=== PATIENT | male | born 1945 | race Caucasian/White ===

== ENCOUNTER 2018-07-10 09:36 | Emergency (ER) | payer MEDICARE, OTHER ==
[~2018-07-10] VITALS: Ht 182.9 cm; Wt 99.8 kg
[~2018-07-10 09:36] MED LIST: FISH OIL 1,0001 EAC1 PO; GABAPENTIN300 MG PO; GLUCOSAMINE &1 EAC1 PO; LISINOPRIL5 MG PO; MULTIVITAMINS1 EAC7 PO; ONDANSETRON ODT8 MG PO; PRILOSEC20 MG PO; ROBINUL1 MG PO
[2018-07-10] MEDS ORDERED: COQ-1030 MG PO (10:02)
[2018-07-10] MEDS ORDERED: DIAZEPAM5 MG PO (12:58)
== END 2018-07-10 13:29 | disposition home or self-care (01) ==
LOC: ED 09:36
DX: M54.5 Low back pain (principal); I10 Essential (primary) hypertension; E78.00 Pure hypercholesterolemia, unspecified; K21.9 Gastro-esophageal reflux disease without esophagitis; Z88.0 Allergy status to penicillin; Z79.899 Other long term (current) drug therapy
CPT/HCPCS: 72100; 99283

== ENCOUNTER 2019-07-03 19:02 | Emergency (ER) | payer MEDICARE, OTHER ==
[~2019-07-03] VITALS: Ht 182.9 cm; Wt 99.8 kg
[~2019-07-03 19:02] MED LIST changes: +COQ-1030 MG PO; +DIAZEPAM5 MG PO
[2019-07-03] MEDS ORDERED: LISINOPRIL40 MG PO (19:25)
[2019-07-03] MEDS ORDERED: VIAGRA100 MG PO (19:27)
--- NOTE | 2019-07-04 22:34 | EKG ---
[facility] [address] [facility] [place] [address] Signed Normal sinus rhythm Nonspecific T wave abnormality Abnormal ECG When compared with ECG of 05-MAY-2018 14:57, premature atrial complexes are no longer present Confirmed by CB WALKER MD ([id number]) on 07/04/2019 10:34:48 PM Electronically Signed By: CB WALKER MD 07/04/19 2234 PATIENT NAME: ANDREWGORDO TUCKER Electrocardiogram DATE OF : 49 PHYSICIAN: CB WALKER MD REPORT #: [id number] REPORT IS CONFIDENTIAL AND NOT TO BE RELEASED WITHOUT AUTHORIZATION
== END 2019-07-03 20:48 | disposition home or self-care (01) ==
LOC: ED 19:02
DX: I10 Essential (primary) hypertension (principal); K21.9 Gastro-esophageal reflux disease without esophagitis; Z88.0 Allergy status to penicillin; Z79.899 Other long term (current) drug therapy
CPT/HCPCS: 80053; 85025; 93005; 93010; 99284-25

== ENCOUNTER 2019-12-28 20:50 | Observation (INO) | payer MEDICARE, OTHER ==
[~2019-12-28] VITALS: Ht 182.9 cm; Wt 104.3 kg
[~2019-12-28 20:50] MED LIST changes: +LISINOPRIL40 MG PO; +PRILOSEC OTC20 MG PO; -PRILOSEC20 MG PO; +VIAGRA100 MG PO
[2019-12-28] MEDS ORDERED: VENTOLIN HFA18 GM INH (21:15)
[2019-12-28] MEDS ORDERED: BENZONATATE100 MG PO (21:15)
[2019-12-28] MEDS ORDERED: SUDOGEST30 MG PO (21:16)
[2019-12-28] MEDS ORDERED: VIRTUSSIN AC W473 ML PO (21:16)
[2019-12-28] MEDS ORDERED: HYDROCHLOROTHIA25 MG PO (22:13)
--- NOTE | 2019-12-28 22:30 | NUR ---
PT ARRIVED TO THE FLOOR. PHONE REPORT RECIEVED FROM LISA CARDONA AT 5732. PT TRANSFERED TO BED ON HIS OWN, SBPeng. PIERO THAYER. MENG CARDONA IN ROOM TO ADMIT.
--- NOTE | 2019-12-28 23:28 | NUR ---
SCHEDULED MEDS PROVIDED. IV WNL, FLUSHED WELL. ASSESSMENT COMPLETED. LUNGS CLEAR IN UPPER LOBES AND DIMINISHED IN LOWER LOBES. SNACK PROVIDED. NO OTHER NEEDS. CALL LIGHT IN REACH.
--- NOTE | 2019-12-29 02:16 | NUR ---
PT AWAKE IN ROOM. ASSESSMENT COMPLETED. LUNGS CLEAR IN ALL LOBES, DIMINISHED IN LOWER LOBES. PT STATES HE FEELS HE MAY NEED TO HAVE A BOWEL MOVEMENT SOON HE IS HAVING ABD PAINS. BOWEL TONES ACTIVE. NO OTHER NEEDS AT THIS TIME. IV INFUSING PER ORDER. CALL LIGHT IN REACH.
--- NOTE | 2019-12-29 04:07 | NUR ---
PT CALLS TO ASK FOR SOMETHING FOR HIS CONGESTION. PT EDUCATED CONCERNING MEDICATION SCHEDULE. HOT TEA PROVIDED, ROOM TEMP TURNED DOWN. PT REQUESTS PUDDING, PROVIDED. NO OTHER NEEDS. CALL LIGHT IN REACH.
--- NOTE | 2019-12-29 04:24 | NUR ---
IV FLUID PROVIDED PER ORDER. IV WNL, CDI, FLUSHED WELL. NO OTHER NEEDS AT THIS TIME. CALL LIGHT IN REACH.
--- NOTE | 2019-12-29 05:30 | NUR ---
PT SLEPT OFF AND ON THIS SHIFT. LUNG SOUNDS CLEAR IN UPPER LOBES, DIMINISHED IN LOWER LOBES. PT STATES HE FEELS LIKE HE HAS GAS PAIN IN ABD, PT HAD 1 SMALL BM. BOWEL TONES ACTIVE, PT STATES ABD NORMAL. PT TOLERATED IV FLUIDS WELL. IV CDI. OCCASSIONAL CONGESTED COUGH.
--- NOTE | 2019-12-29 06:22 | NUR ---
PT AWAKE, SITTING ON EDGE OF BED. UP TO BR AND BACK TO BED. NO OTHER NEEDS AT THIS TIME. CALL LIGHT IN REACH.
--- NOTE | 2019-12-29 07:30 | NUR ---
Bedside report received by BRENDAN Geronimo. Orders acknowledged. Patient laying in bed, awake and alert. 3% NS infusing at 50 mls/hr. Patient reports "I didn't sleep well last night, my nose is so stuffed up it's hard to breathe." Denies needs at this time, call light within reach.
--- NOTE | 2019-12-29 07:55 | NUR ---
PT REQUESTED SOMETHING FOR NAUSEA, ZOFRAN 4MG IV GIVEN, PT SITTING UP ON SIDE OF BED.
--- NOTE | 2019-12-29 10:32 | NUR ---
PT ALERT, ORIENTED AND RESTING IN BED WITH TV ON. PT IS FEELING BETTER, WAITING FOR RECENT LAB RESULTS. PT IS VERY PLEASED WITH HIS CARE, AND SEEMS TO BE COPING WELL ALL THINGS CONSIDERED. LEFT A G.POST, PT REQUESTED PRAYER
--- NOTE | 2019-12-29 11:00 | NUR ---
Patient states "I feel achy and flushed." Patient coughing up green/brown sputum, face is flushed, and has a temp of 99.2. Dr. Ceballos notified. Orders acknowledged for nasal swab and sputum culture to be sent to lab. Specimens collected and sent off. Patient denies further needs at this time, call light within reach.
--- NOTE | 2019-12-29 12:08 | NUR ---
Patient up to toilet, voiding QS. 3% NS infusing at 60 mls/hr. Returns to bed, lunch delivered. Denies needs at this time, call light within reach.
--- NOTE | 2019-12-29 14:31 | NUR ---
PATIENT WAS ADMITTED AT HIGH RISK FOR MALNUTRITION DUE TO DECREASED APPETITE AND RECENT WEIGHT LOSS. 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 HIS BMI IS 31.2. CURRENTLY IN ROOM LYING IN BED WATCHING TV, BUT WAS MOVING AROUND INDEPENDENTLY A FEW MINUTES AGO LOOKING OUT THE WINDOW. CURRENT DIET IS REGULAR. HE HAD HYPONATREMIA WHEN HE CAME IN. ANTICIPATE NUTRITON NEEDS TO BE MET BY ORAL DIET PATIENT FEELS BETTER. NO INTERVENTION NEEDED AT THIS TIME. WILL REMAIN AVAILABLE IF NEEDED.
--- NOTE | 2019-12-29 14:54 | NUR ---
Dr. Ceballos in room to discuss POC with patient. 3% NS infusing at 60 mls/hr. All patient questions and concerns answered. Pharmacy in room to reconcile medications.
[2019-12-29] MEDS ORDERED: CHLORTHALIDONE25 MG PO (16:26)
[2019-12-29] MEDS ORDERED: DICLOFENAC SOD100 GM TOP (16:30)
[2019-12-29] MEDS ORDERED: ROPINIROLE HCL1 MG PO (16:33)
--- NOTE | 2019-12-29 16:35 | NUR ---
MED REC COMPLETED USING [facility] FILL INFORMATION, [facility] MEDICATION LIST AND PATIENT INTERVIEW.
--- NOTE | 2019-12-29 18:10 | NUR ---
Patient sleeping in bed on right side, respirations even and unlabored. Call light within reach.
--- NOTE | 2019-12-29 19:28 | NUR ---
SHIFT REPORT RECIEVED FROM NBA CARDONA. PT RESTING IN BED. NO NEEDS AT THIS TIME. CALL LIGHT IN REACH.
--- NOTE | 2019-12-29 20:16 | NUR ---
PT CALLED REQUESTING A SODA, HE DENIES FURTHER NEEDS AT THIS TIME. CALL LIGHT IS CLOSE.
--- NOTE | 2019-12-29 20:25 | NUR ---
VS and i&os complete. nothing needed from pt. he asked me to remind the RN to give his sleeping pill at 2230. RN was given a note.
--- NOTE | 2019-12-29 20:39 | EKG ---
[facility] [address] [facility] [place] [address] Signed Normal sinus rhythm Nonspecific T wave abnormality Abnormal ECG When compared with ECG of 03-JUL-2019 19:42, No significant change was found Confirmed by SURYA HAYNES DO ([id number]) on 12/29/2019 8:39:13 PM Electronically Signed By: SURYA HAYNES DO 12/29/199 PATIENT NAME: GORDO MORALES TUCKER Electrocardiogram DATE OF : 49 PHYSICIAN: SURYA HAYNES DO REPORT #: [id number] REPORT IS CONFIDENTIAL AND NOT TO BE RELEASED WITHOUT AUTHORIZATION
--- NOTE | 2019-12-29 21:01 | NUR ---
ASSESSMENT COMPLETED. SCHEDULED MEDS PROVIDED. PRN CONGESTION MED PROVIDED. LUNG SOUNDS CLEAR. IV CDI, WNL, FLUSHED WELL. NO OTHER NEEDS. CALL LIGHT IN REACH.
--- NOTE | 2019-12-29 22:17 | NUR ---
SCHEDULED MED PROVIDEDE. PRN SLEEP MED PROVIDED. ICE WATER PROVIDED. NO OTHER NEEDS. CALL LIGHT IN REACH.
--- NOTE | 2019-12-30 00:05 | NUR ---
PT RESTING IN BED, EYES CLOSED. RR EVEN, UNLABORED. CALL LIGHT IN REACH.
--- NOTE | 2019-12-30 02:00 | NUR ---
PT RESTING IN BED, EYES CLOSED. RR EVEN, UNLABORED. CALL LIGHT IN REACH.
--- NOTE | 2019-12-30 04:20 | NUR ---
SCHEDULED MED PROVIDED. PT DENIES SOB, LUNGS CLEAR. ASSESSMENT COMPLETED. IV WNL. NO OTHER NEEDS. CALL LIGHT IN REACH.
--- NOTE | 2019-12-30 05:31 | NUR ---
PT SLEPT WELL THIS SHIFT. LUNG SOUNDS CLEAR. IV WNL, FLUSHED WELL. PT DENIES SOB. NASAL CONGESTION MANAGED WITH PRN CONGESTION MED. PT TOLERATED IV, MEDS AND DIET WELL.
--- NOTE | 2019-12-30 06:20 | NUR ---
VS AND I&O COMPLETED. LAB IN ROOM. NO OTHER NEEDS. CALL LIGHT IN REACH.
--- NOTE | 2019-12-30 07:18 | NUR ---
PT SLEEPING SOUNDLY REPORT RECEIVED
[2019-12-30] MEDS ORDERED: TRAZODONE HCL50 MG PO (08:53)
--- NOTE | 2019-12-30 09:19 | NUR ---
PT HAS 100% BREAKFAST STATES HE FEELS SO MUCH BETTER AGREES HE IS READY FOR DC. DENIES QUESTIONS STATES THE DOCTOR ANSWERED ALL OF THEM. VERBALIZES UNDERSTANDING OF DC ORDERS.
--- NOTE | 2020-01-02 11:15 | NUR ---
CALLED PT FOR FU AND NO ANSWER MESSAGE LEFT.
== END 2019-12-30 09:46 | disposition home or self-care (01) ==
LOC: ED 20:50 → MS 20:51
PROVIDERS: ADMIT Student in an Organized Health Care Education/Training Program
DX: E87.1 Hypo-osmolality and hyponatremia (principal); J10.1 Influenza due to other identified influenza virus with other respiratory manifestations; I10 Essential (primary) hypertension; G25.81 Restless legs syndrome; E78.00 Pure hypercholesterolemia, unspecified; K21.9 Gastro-esophageal reflux disease without esophagitis; Z88.0 Allergy status to penicillin; Z79.899 Other long term (current) drug therapy
CPT/HCPCS: 36415; 71045; 80048; 80053; 81001; 83735; 83880; 83935; 84295; 84300; 84484; 85025; 87070; 87205; 87502; 93005; 93010; 96361; 96374; 96375; 99285-25; G0378; J2405; J3475; J7030

== ENCOUNTER 2020-02-24 04:35 | Emergency (ER) | payer MEDICARE, OTHER ==
[~2020-02-24] VITALS: Ht 182.9 cm; Wt 101.6 kg
[~2020-02-24 04:35] MED LIST changes: +BENZONATATE100 MG PO; +CHLORTHALIDONE25 MG PO; +DICLOFENAC SOD100 GM TOP; +HYDROCHLOROTHIA25 MG PO; +ROPINIROLE HCL1 MG PO; +SUDOGEST30 MG PO; +TRAZODONE HCL50 MG PO; +VENTOLIN HFA18 GM INH; +VIRTUSSIN AC W473 ML PO
[2020-02-24] MEDS ORDERED: METOPROLOL TART25 MG PO (04:52)
--- NOTE | 2020-02-24 12:29 | EKG ---
[facility] [address] [facility] [place] [address] Signed Normal sinus rhythm Nonspecific T wave abnormality Abnormal ECG When compared with ECG of 28-DEC-2019 21:00, Inverted T waves have replaced nonspecific T wave abnormality in Inferior leads Confirmed by SURYA HAYNES DO ([id number]) on 02/24/2020 12:28:40 PM Electronically Signed By: SURYA HAYNES DO 02/24/20 1229 PATIENT NAME: ANDREWGORDO TUCKER Electrocardiogram DATE OF : 49 PHYSICIAN: SURYA HAYNES DO REPORT #: [id number] REPORT IS CONFIDENTIAL AND NOT TO BE RELEASED WITHOUT AUTHORIZATION
== END 2020-02-24 06:14 | disposition home or self-care (01) ==
LOC: ED 04:35
DX: J06.9 Acute upper respiratory infection, unspecified (principal); I10 Essential (primary) hypertension; E78.00 Pure hypercholesterolemia, unspecified; K21.9 Gastro-esophageal reflux disease without esophagitis; Z79.899 Other long term (current) drug therapy; Z88.0 Allergy status to penicillin
CPT/HCPCS: 71045; 80048; 83880; 84484; 85025; 93005; 93010; 94640; 94664; 99285-25

== ENCOUNTER 2020-03-02 06:11 | Emergency (ER) | payer MEDICARE, OTHER ==
[~2020-03-02] VITALS: Ht 182.9 cm; Wt 101.6 kg
[~2020-03-02 06:11] MED LIST changes: +METOPROLOL TART25 MG PO
--- OUTSIDE RECORDS SUMMARY | 2020-03-02 06:14 | XMS ---
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 Care History Medical/Surgical 01/15/2020 [facility] \T\middot;\T\nbsp; PATIENT IS A -RECEIVES SERVICES THROUGH [facility] IN [place]. \T\middot;\T\nbsp; Location: [address], [place] [address]- E.D. VISIT COUNT (12 MO.) 5 [facility] TOTAL 5 NOTE: Visits indicate total known visits. ED/UCC VISIT TRACKING (12 MO.) 03/02/2020 06:12 [facility] TYPE: Emergency COMPLAINT: - CHEST PAIN,SOB 02/24/2020 04:35 [facility] TYPE: Emergency COMPLAINT: - COUGH DIAGNOSES: - Cough - Other care home (current) drug therapy - Essential (primary) hypertension - Acute upper respiratory infection, unspecified - Allergy status to penicillin - Gastro-esophageal reflux disease without esophagitis - Pure hypercholesterolemia, unspecified 01/13/2020 22:12 [facility] TYPE: Emergency COMPLAINT: - BLOOD PRESSURE PROBLEM DIAGNOSES: - Allergy status to penicillin - Other rn long term care (current) drug therapy - Essential (primary) hypertension - Gastro-esophageal reflux disease without esophagitis - Pure hypercholesterolemia, unspecified 12/28/2019 20:50 [facility] TYPE: Emergency COMPLAINT: - SOB,FLU LIKE SYMPTOMS 07/03/2019 19:03 [facility] TYPE: Emergency COMPLAINT: - HIGH BLOOD PRESSURE DIAGNOSES: - Gastro-esophageal reflux disease without esophagitis - Other rn long term care (current) drug therapy - Allergy status to penicillin - Essential (primary) hypertension INPATIENT VISIT TRACKING (12 MO.) 12/28/2019 20:51 [facility] TYPE: Observation COMPLAINT: - HYPONATREMIC DIAGNOSES: - Allergy status to penicillin - Other rn long term care (current) drug therapy - Hypo-osmolality and hyponatremia - Restless legs syndrome - Gastro-esophageal reflux disease without esophagitis - Pure hypercholesterolemia, unspecified - Essential (primary) hypertension - Influenza due to other identified influenza virus with other [email or web address]
--- NOTE | 2020-03-02 06:47 | EKG ---
[facility] [address] [facility] [place] [address] Signed Normal sinus rhythm Nonspecific T wave abnormality Abnormal ECG When compared with ECG of 24-FEB-2020 05:29, Nonspecific T wave abnormality has replaced inverted T waves in Inferior leads Confirmed by ELISEO PETERSEN MD ([id number]) on 03/02/2020 6:47:36 AM Electronically Signed By: ELISEO PETERSEN MD 03/02/20 0647 PATIENT NAME: GORDO MORALES Electrocardiogram DATE OF : 49 PHYSICIAN: ELISEO PETERSEN MD REPORT #: [id number] REPORT IS CONFIDENTIAL AND NOT TO BE RELEASED WITHOUT AUTHORIZATION
== END 2020-03-02 07:48 | disposition home or self-care (01) ==
LOC: ED 06:11
DX: R07.89 Other chest pain (principal); E78.00 Pure hypercholesterolemia, unspecified; K21.9 Gastro-esophageal reflux disease without esophagitis; I10 Essential (primary) hypertension; Z88.0 Allergy status to penicillin; Z79.899 Other long term (current) drug therapy
CPT/HCPCS: 71045; 80053; 83735; 84484; 85025; 99285-25

== ENCOUNTER 2020-06-27 14:18 | Emergency (ER) | payer MEDICARE ==
[~2020-06-27] VITALS: Ht 182.9 cm; Wt 101.6 kg
[2020-06-27] MEDS ORDERED: METOPROLOL TART50 MG PO (14:46)
[2020-06-27] MEDS ORDERED: K-TAB ER20 MEQ PO (16:21)
[2020-06-27] MEDS ORDERED: VENTOLIN HFA18 GM INH (16:21)
[2020-06-27] MEDS ORDERED: LASIX20 MG PO (16:21)
--- NOTE | 2020-06-28 06:09 | EKG ---
[facility] [address] [facility] [place] [address] Signed Normal sinus rhythm Nonspecific T wave abnormality Abnormal ECG When compared with ECG of 02-MAR-2020 06:19, T wave inversion no longer evident in Anterior leads Confirmed by ELISEO PETERSEN MD ([id number]) on 06/28/2020 6:08:56 AM Electronically Signed By: ELISEO PETERSEN MD 06/28/20608 PATIENT NAME: ANDREWGORDO TUCKER Electrocardiogram DATE OF : 49 PHYSICIAN: ELISEO PETERSEN MD REPORT #: [id number] REPORT IS CONFIDENTIAL AND NOT TO BE RELEASED WITHOUT AUTHORIZATION
== END 2020-06-27 16:30 | disposition home or self-care (01) ==
LOC: ED 14:18
DX: J45.909 Unspecified asthma, uncomplicated (principal); I10 Essential (primary) hypertension; K21.9 Gastro-esophageal reflux disease without esophagitis; Z88.0 Allergy status to penicillin; Z79.899 Other long term (current) drug therapy
CPT/HCPCS: 71046; 80053; 83880; 84484; 85025; 93005; 93010; 94640; 99285-25

== ENCOUNTER 2020-08-07 13:31 | Emergency (ER) | payer MEDICARE ==
[~2020-08-07] VITALS: Ht 182.9 cm; Wt 101.6 kg
[~2020-08-07 13:31] MED LIST changes: +K-TAB ER20 MEQ PO; +LASIX20 MG PO; +METOPROLOL TART50 MG PO
[2020-08-07] MEDS ORDERED: ZESTORETIC 20-1 EAC1 PO (13:44)
[2020-08-07] MEDS ORDERED: KCL PO (15:53)
[2020-08-07] MEDS ORDERED: LASIX20 MG PO (15:53)
[2020-08-07] MEDS ORDERED: LISINOPRIL20 MG PO (15:53)
--- NOTE | 2020-08-07 20:46 | EKG ---
[facility] [address] [facility] [place] [address] Signed Sinus rhythm with premature atrial complexes Nonspecific T wave abnormality Abnormal ECG When compared with ECG of 27-JUN-2020 14:30, premature atrial complexes are now present Confirmed by SURYA HAYNES DO ([id number]) on 08/07/2020 8:46:28 PM Electronically Signed By: SURYA HAYNES DO 08/07/20 2046 PATIENT NAME: ANDREWGORDO TUCKER Electrocardiogram DATE OF : 49 PHYSICIAN: SURYA HAYNES DO REPORT #: [id number] REPORT IS CONFIDENTIAL AND NOT TO BE RELEASED WITHOUT AUTHORIZATION
== END 2020-08-07 16:01 | disposition home or self-care (01) ==
LOC: ED 13:31
DX: I11.0 Hypertensive heart disease with heart failure (principal); I50.9 Heart failure, unspecified; E78.00 Pure hypercholesterolemia, unspecified; K21.9 Gastro-esophageal reflux disease without esophagitis; E78.5 Hyperlipidemia, unspecified; Z88.0 Allergy status to penicillin; Z79.899 Other long term (current) drug therapy
CPT/HCPCS: 71045; 80053; 83880; 84484; 85025; 93005; 93010; 96374; 99285-25; J1940

== ENCOUNTER 2022-10-28 11:58 | Emergency (ER) | payer MEDICARE, OTHER ==
[~2022-10-28] VITALS: Ht 182.9 cm; Wt 98.0 kg
[~2022-10-28 11:58] MED LIST changes: +KCL PO; +LISINOPRIL20 MG PO; +ZESTORETIC 20-1 EAC1 PO
--- OUTSIDE RECORDS SUMMARY | 2022-10-28 12:00 | XMS ---
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 Care History Medical/Surgical 01/15/2020 [facility] \T\middot;\T\nbsp; PATIENT [facility] [place] \T\middot;\T\nbsp; [place] [address]- E.D. VISIT COUNT (12 MO.) [address] [place] [address] TOTAL 1 NOTE: Visits indicate total known visits. ED/UCC VISIT TRACKING (12 MO.) 10/28/2022 11:[address] [facility] [place] TYPE: Emergency COMPLAINT: - CHEST PAIN, SOB, HIGH B/P INPATIENT VISIT TRACKING (12 MO.) No inpatient visits to display in this time frame [email or web address]
[2022-10-28] MEDS ORDERED: MAGNESIUM250 M1 PO (12:33)
--- NOTE | 2022-10-29 21:19 | EKG ---
[facility] [address] [facility] [place] [address] Signed Normal sinus rhythm with sinus arrhythmia Nonspecific T wave abnormality Abnormal ECG When compared with ECG of 07-AUG-2020 14:00, premature atrial complexes are no longer present Confirmed by Mayur Smith MD () on 10/29/2022 9:19:31 PM Electronically Signed By: MAYUR SMITH MD 10/29/229 PATIENT NAME: GORDO MORALES Electrocardiogram DATE OF : 49 PHYSICIAN: MAYUR SMITH MD REPORT #: [id number] REPORT IS CONFIDENTIAL AND NOT TO BE RELEASED WITHOUT AUTHORIZATION
== END 2022-10-28 14:53 | disposition home or self-care (01) ==
LOC: ED 11:58
DX: R07.89 Other chest pain (principal); R07.81 Pleurodynia; I11.0 Hypertensive heart disease with heart failure; I50.9 Heart failure, unspecified; K21.9 Gastro-esophageal reflux disease without esophagitis; E78.00 Pure hypercholesterolemia, unspecified; Z88.0 Allergy status to penicillin; Z79.899 Other long term (current) drug therapy
CPT/HCPCS: 36415; 71045; 80053; 83735; 84484; 85025; 93005; 93010; 99285-25

== ENCOUNTER 2023-03-02 05:07 | Emergency (ER) | payer MEDICARE, OTHER ==
[~2023-03-02] VITALS: Ht 182.9 cm; Wt 105.0 kg
[~2023-03-02 05:07] MED LIST changes: +MAGNESIUM250 M1 PO
--- OUTSIDE RECORDS SUMMARY | 2023-03-02 05:10 | XMS ---
PreManage Notification: GORDO MORALES Security Hr Specialist Events No recent Security Events currently on file CRITERIA MET - [facility]Current PHONE: Unknown Jill has no Care Guidelines for this patient. Care History Medical/Surgical 01/15/2020 [facility] \T\middot;\T\nbsp; PATIENT [facility] [place] \T\middot;\T\nbsp; [place] [address]- E.D. VISIT COUNT (12 MO.) 2 [facility] TOTAL 2 NOTE: Visits indicate total known visits. 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
[2023-03-02] MEDS ORDERED: METOPROLOL SUCC25 MG PO (05:27)
[2023-03-02] MEDS ORDERED: LISINOPRIL20 MG PO (05:27)
[2023-03-02] MEDS ORDERED: DICLOFENAC SOD100 G1 TOP (05:28)
[2023-03-02 05:56] VITALS: BP 129/83
== END 2023-03-02 05:58 | disposition home or self-care (01) ==
LOC: ED 05:07
DX: S70.01XA Contusion of right hip, initial encounter (principal); S80.11XA Contusion of right lower leg, initial encounter; I11.0 Hypertensive heart disease with heart failure; I50.9 Heart failure, unspecified; W18.09XA Striking against other object with subsequent fall, initial encounter; Z88.0 Allergy status to penicillin; Z96.641 Presence of right artificial hip joint; Z79.899 Other long term (current) drug therapy
CPT/HCPCS: 73502; 73590